=== PATIENT | male | born 1950 | race Caucasian/White ===

== ENCOUNTER 2017-07-04 13:52 | Emergency (ER) | payer BC ==
[~2017-07-04] VITALS: Ht 179.1 cm; Wt 100.8 kg
[~2017-07-04 13:52] MED LIST: ADULT LOW DOSE81 M1 PO; ADVAIR 100-501 EACH IH; FLONASE16 GM NS; SINGULAIR10 MG PO; VENTOLIN17 GM IH
[2017-07-04 14:20] LABS: HEMATOCRIT 45.9 % (38.0-50.0); MCH 27.7 PG (29.0-34.0); MCHC 32.7 G/DL (30.0-36.0); MCV 84.8 FL (86-99); PLATELET COUNT 207 K/uL (156-360); RBC DIS.WIDTH-CV 15.8 % (11.8-14.6); RBC DIS.WIDTH-SD 48.7 % (39-53); RED BLOOD COUNT 5.41 M/uL (4.00-5.50); WHITE BLOOD COUNT 6.4 K/uL (4.1-10.2)
[2017-07-04 14:34] LABS: INTER. NORMALIZED RATIO 2.1
[2017-07-04 14:35] LABS: CHLORIDE 107 mEq/L (99-109); POTASSIUM 4.5 mEq/L (3.7-5.4); SODIUM 141 mEq/L (136-147)
[2017-07-04 14:36] LABS: GLUCOSE 94 mg/dL (70-99)
[2017-07-04 14:37] LABS: PTT 37.8 SEC (25-37)
[2017-07-04 14:40] LABS: CREATININE 1.1 mg/dL (0.6-1.3); GFR ESTIMATE (CALCULATED) > 59 mL/min/ (58.99-99999)
[2017-07-04 14:41] LABS: UREA NITROGEN (BUN) 22 mg/dL (9-23)
[2017-07-04 14:45] LABS: TROP-I INTERPRETATION NEGATIVE; TROPONIN-I < 0.01 ng/mL (0.0-0.30)
[2017-07-04 17:56] LABS: TROP-I INTERPRETATION NEGATIVE; TROPONIN-I < 0.01 ng/mL (0.0-0.30)
[2017-07-04 18:55] VITALS: BP 155/78
== END 2017-07-04 18:56 | disposition home or self-care (01) ==
LOC: EME 13:52
PROVIDERS: Emergency Medicine Emergency Medical Services
DX: R07.89 Other chest pain (principal); J45.909 Unspecified asthma, uncomplicated; D68.2 Hereditary deficiency of other clotting factors
CPT/HCPCS: 71045; 80048; 84484; 85027; 85610; 85730; 93005; 99281; 99285